=== PATIENT | female | born 1970 | race Caucasian/White ===

== ENCOUNTER → 2021-08-07 | Outpatient (CLI) | payer BC ==
--- NOTE | 2021-08-07 15:26 | RAD ---
EXAM: Chest, 2 views. HISTORY: Bronchitis. Short of breath. COMPARISON: None. FINDINGS: 2 views of the chest are obtained. There is no infiltrate, pleural effusion or pneumothorax . The heart is normal in size. IMPRESSION: No acute pulmonary finding. Electronically signed by: Valerie Leong MD (08/07/2021 3:23 PM) [id number]
== END ==
LOC: RAD 15:01
PROVIDERS: ATTEND Physician Assistant
DX: J40 Bronchitis, not specified as acute or chronic (principal)
CPT/HCPCS: 71046